=== PATIENT | female | born 1970 | race Two or more races ===

== ENCOUNTER 2019-05-13 23:52 | Emergency (ER) | payer OTHER ==
[~2019-05-13] VITALS: Ht 170.2 cm; Wt 113.4 kg
[2019-05-14 00:22] LABS: BASOPHILS ABSOLUTE AUTO 0.04 K/mm3 (0.00-0.23); BASOPHILS PERCENT AUTO 0 % (0-2); EOSINOPHILS ABSOLUTE AUTO 0.21 K/mm3 (0.00-0.68); EOSINOPHILS PERCENT AUTO 2 % (0-6); Hematocrit 38.2 % (33.0-51.0); Hemoglobin 12.7 g/dL (11.5-16.0); IMMATURE GRAN ABSOLUTE AUTO 0.08 K/mm3 (0.00-0.10); IMMATURE GRAN PERCENT AUTO 1 % (0-1); LYMPHOCYTES ABSOLUTE AUTO 2.74 K/mm3 (0.84-5.20); LYMPHOCYTES PERCENT AUTO 21 % (21-46); MONOCYTES PERCENT AUTO 6 % (4-13); Mean Corpuscular HGB 31.1 pg (26.0-34.0); Mean Corpuscular HGB Conc 33.2 g/dL (31.5-36.5); Mean Corpuscular Volume 94 fL (80-100); Mean Platelet Volume 10.2 fL (9.1-12.4); NEUTROPHILS ABSOLUTE AUTO 9.37 K/mm3 (1.96-9.15); NEUTROPHILS PERCENT AUTO 71 % (41-73); Platelet Count 270 K/mm3 (150-400); RDW Coefficient Variation 11.7 % (11.7-14.2); RDW Standard Deviation 40.1 fL (35.1-46.3); Red Blood Cell Count 4.08 M/mm3 (3.80-5.20); White Blood Cell Count 13.24 K/mm3 (4.00-11.30)
[2019-05-14 00:37] LABS: International Normalized Ratio 0.92; Prothrombin Time Results 9.8 Sec (9.7-11.5)
[2019-05-14 00:44] LABS: Alanine Aminotransfer (ALT/SGP 21 U/L (12-78); Albumin, Blood 3.9 g/dL (3.4-5.0); Albumin/Globulin Ratio 1.2 (0.8-1.8); Alk Phos 73 U/L (50-136); Anion Gap 6 mmol/L (6-16); Aspartate Aminotrans (AST/SGOT 12 U/L (12-37); Bilirubin, Total 0.2 mg/dL (0.1-1.0); Blood Urea Nitrogen 16 mg/dL (8-24); Bun/Creatinine Ratio 21.4 (12.0-20.0); CO2, Blood 28 mmol/L (21-32); Calcium, Blood 8.7 mg/dL (8.5-10.1); Chloride, Blood 105 mmol/L (98-108); Creatinine, Blood 0.75 mg/dL (0.40-1.00); Globulin, Blood 3.3 g/dL (2.2-4.0); Glomerular Filtration Rate >60 (60-); Glucose, Blood 76 mg/dL (70-99); Potassium, Blood 3.6 mmol/L (3.5-5.5); Sodium, Blood 139 mmol/L (136-145); Total Protein, Blood 7.2 g/dL (6.4-8.2); Troponin I <0.015 ng/mL (0.000-0.040)
== END 2019-05-14 02:12 | disposition home or self-care (01) ==
LOC: ER 23:52
PROVIDERS: Emergency Medicine
DX: R07.89 Other chest pain (principal); Z86.718 Personal history of other venous thrombosis and embolism; Z86.2 Personal history of diseases of the blood and blood-forming organs and certain disorders involving the immune mechanism; Z88.5 Allergy status to narcotic agent
CPT/HCPCS: 36415; 71260; 80053; 84484; 85025; 85610; 85730; 93005; 93010; 96374; 96375; 99284; J1885; J3010; Q9967

== ENCOUNTER 2019-09-22 14:00 | Day surgery (SDC) | payer OTHER ==
[~2019-09-22] VITALS: Ht 170.2 cm; Wt 117.0 kg
[~2019-09-22 14:00] MED LIST: Diethylpropion25 MG PO; ESCI20 PO; LEVSOD75 PO; OMEP20ER
== END 2019-09-22 15:25 | disposition home or self-care (01) ==
LOC: ORSCSDS 14:00
PROVIDERS: Student in an Organized Health Care Education/Training Program
PROC: 0DB58ZX Excision of Esophagus, Via Natural or Artificial Opening Endoscopic, Diagnostic (ICD-10-PCS; principal; 2019-09-22 15:15)
PROC: 0DB98ZX Excision of Duodenum, Via Natural or Artificial Opening Endoscopic, Diagnostic (ICD-10-PCS; principal; 2019-09-22 15:15)
PROC: 0DB68ZX Excision of Stomach, Via Natural or Artificial Opening Endoscopic, Diagnostic (ICD-10-PCS; principal; 2019-09-22 15:15)
DX: K21.9 Gastro-esophageal reflux disease without esophagitis (principal); E03.9 Hypothyroidism, unspecified; E66.01 Morbid (severe) obesity due to excess calories; Z68.41 Body mass index [BMI] 40.0-44.9, adult; Z79.899 Other long term (current) drug therapy
CPT/HCPCS: 88305; 88342; J2001; J2250; J2704; J7120

== ENCOUNTER 2022-09-17 06:11 | Emergency (ER) | payer OTHER ==
[~2022-09-17] VITALS: Ht 167.6 cm; Wt 81.7 kg
[2022-09-17 06:59] LABS: BASOPHILS ABSOLUTE AUTO 0.03 K/mm3 (0.00-0.23); BASOPHILS PERCENT AUTO 1 % (0-2); EOSINOPHILS ABSOLUTE AUTO 0.28 K/mm3 (0.00-0.68); EOSINOPHILS PERCENT AUTO 4 % (0-6); Hematocrit 27.8 % (33.0-51.0); Hemoglobin 9.1 g/dL (11.5-16.0); IMMATURE GRAN ABSOLUTE AUTO 0.05 K/mm3 (0.00-0.10); IMMATURE GRAN PERCENT AUTO 1 % (0-1); LYMPHOCYTES ABSOLUTE AUTO 1.44 K/mm3 (0.84-5.20); LYMPHOCYTES PERCENT AUTO 22 % (21-46); MONOCYTES ABSOLUTE AUTO 0.53 K/mm3 (0.16-1.47); MONOCYTES PERCENT AUTO 8 % (4-13); Mean Corpuscular HGB 32.9 pg (26.0-34.0); Mean Corpuscular HGB Conc 32.7 g/dL (31.5-36.5); Mean Corpuscular Volume 100 fL (80-100); NEUTROPHILS ABSOLUTE AUTO 4.22 K/mm3 (1.96-9.15); NEUTROPHILS PERCENT AUTO 64 % (41-73); Platelet Count 279 K/mm3 (150-400); RDW Standard Deviation 48.6 fL (35.1-46.3); Red Blood Cell Count 2.77 M/mm3 (3.80-5.20); White Blood Cell Count 6.55 K/mm3 (4.00-11.30)
[2022-09-17 07:24] LABS: Albumin, Blood 2.8 g/dL (3.4-5.0); Albumin/Globulin Ratio 0.9 (0.8-1.8); Bilirubin, Total 0.3 mg/dL (0.1-1.0); Bun/Creatinine Ratio 33.2 (12.0-20.0); Calcium, Blood 8.4 mg/dL (8.5-10.1); Creatinine, Blood 0.57 mg/dL (0.40-1.00); Globulin, Blood 3.2 g/dL (2.2-4.0)
[2022-09-17] MEDS ORDERED: Lasix20 MG PO (08:48)
== END 2022-09-17 09:19 | disposition home or self-care (01) ==
LOC: ER 06:11
PROVIDERS: Emergency Medicine
DX: R07.89 Other chest pain (principal); Z88.5 Allergy status to narcotic agent; Z88.8 Allergy status to other drugs, medicaments and biological substances; Z79.899 Other long term (current) drug therapy
CPT/HCPCS: 36415; 71260; 80053; 83880; 84484; 85025; 93005; 93010; 99284-25; Q9967

== ENCOUNTER 2022-10-02 00:26 | Day surgery (SDC) | payer OTHER ==
[~2022-10-02 00:26] MED LIST changes: +Lasix20 MG PO
== END 2022-10-02 22:44 | disposition home or self-care (01) ==
LOC: WOUND 00:26
DX: T81.32XA Disruption of internal operation (surgical) wound, not elsewhere classified, initial encounter (principal); Z88.5 Allergy status to narcotic agent; Z88.8 Allergy status to other drugs, medicaments and biological substances
CPT/HCPCS: A9270; G0463

== ENCOUNTER 2022-10-09 00:29 | Day surgery (SDC) | payer OTHER | END 2022-10-09 23:16 | disposition home or self-care (01) | LOC: WOUND 00:29 | DX: T81.32XA Disruption of internal operation (surgical) wound, not elsewhere classified, initial encounter (principal) | CPT/HCPCS: A9270; G0463 ==

== ENCOUNTER 2022-10-16 00:17 | Day surgery (SDC) | payer OTHER | END 2022-10-16 22:42 | disposition home or self-care (01) | LOC: WOUND 00:17 | DX: T81.30XA Disruption of wound, unspecified, initial encounter (principal) ==

== ENCOUNTER 2022-11-02 00:56 | Day surgery (SDC) | payer OTHER | END 2022-11-02 22:40 | disposition home or self-care (01) | LOC: WOUND 00:56 | DX: T81.30XD Disruption of wound, unspecified, subsequent encounter (principal); S31.809D Unspecified open wound of unspecified buttock, subsequent encounter; S41.102D Unspecified open wound of left upper arm, subsequent encounter; S71.101D Unspecified open wound, right thigh, subsequent encounter | CPT/HCPCS: G0463 ==

== ENCOUNTER 2022-11-10 00:28 | Day surgery (SDC) | payer OTHER | END 2022-11-10 23:01 | disposition home or self-care (01) | LOC: WOUND 00:28 | DX: T81.31XD Disruption of external operation (surgical) wound, not elsewhere classified, subsequent encounter (principal); S31.809D Unspecified open wound of unspecified buttock, subsequent encounter; S41.102D Unspecified open wound of left upper arm, subsequent encounter; S71.101D Unspecified open wound, right thigh, subsequent encounter; S71.102D Unspecified open wound, left thigh, subsequent encounter; X58.XXXD Exposure to other specified factors, subsequent encounter | CPT/HCPCS: A9270; G0463 ==

== ENCOUNTER 2022-11-20 08:00 | Day surgery (SDC) | payer OTHER | END 2022-11-20 23:59 | disposition home or self-care (01) | LOC: WOUND 08:00 | DX: T81.30XD Disruption of wound, unspecified, subsequent encounter (principal); Y83.8 Other surgical procedures as the cause of abnormal reaction of the patient, or of later complication, without mention of misadventure at the time of the procedure; S31.809D Unspecified open wound of unspecified buttock, subsequent encounter; S41.102D Unspecified open wound of left upper arm, subsequent encounter; S71.101D Unspecified open wound, right thigh, subsequent encounter; S71.102D Unspecified open wound, left thigh, subsequent encounter; X58.XXXD Exposure to other specified factors, subsequent encounter | CPT/HCPCS: A9270; G0463 ==

== ENCOUNTER → 2023-05-05 | Outpatient (CLI) | payer OTHER ==
[2023-05-05 14:47] LABS: SARS-Cov-2 (COVID-19) PCR, MMC NEGATIVE (NEGATIVE)
== END | disposition home or self-care (01) ==
LOC: LAB SHORT 12:54 → LAB 12:54
PROVIDERS: Family Medicine
DX: Z01.812 Encounter for preprocedural laboratory examination (principal)
CPT/HCPCS: U0002

== ENCOUNTER 2024-09-11 19:30 | Observation (INO) | payer OTHER ==
[~2024-09-11] VITALS: Ht 165.1 cm; Wt 74.8 kg
[2024-09-11 20:30] LABS: BASOPHILS ABSOLUTE AUTO 0.01 K/mm3 (0.00-0.23); BASOPHILS PERCENT AUTO 0 % (0-2); EOSINOPHILS ABSOLUTE AUTO 0.12 K/mm3 (0.00-0.68); EOSINOPHILS PERCENT AUTO 3 % (0-6); Hematocrit 32.3 % (33.0-51.0); Hemoglobin 11.4 g/dL (11.5-16.0); IMMATURE GRAN ABSOLUTE AUTO 0.01 K/mm3 (0.00-0.10); IMMATURE GRAN PERCENT AUTO 0 % (0-1); LYMPHOCYTES ABSOLUTE AUTO 1.48 K/mm3 (0.84-5.20); LYMPHOCYTES PERCENT AUTO 31 % (21-46); MONOCYTES ABSOLUTE AUTO 0.26 K/mm3 (0.16-1.47); MONOCYTES PERCENT AUTO 6 % (4-13); Mean Corpuscular HGB 32.6 pg (26.0-34.0); Mean Corpuscular HGB Conc 35.3 g/dL (31.5-36.5); Mean Corpuscular Volume 92 fL (80-100); Mean Platelet Volume 9.6 fL (9.1-12.4); NEUTROPHILS ABSOLUTE AUTO 2.83 K/mm3 (1.96-9.15); NEUTROPHILS PERCENT AUTO 60 % (41-73); Platelet Count 209 K/mm3 (150-400); RDW Coefficient Variation 11.4 % (11.7-14.2); RDW Standard Deviation 38.6 fL (35.1-46.3); White Blood Cell Count 4.71 K/mm3 (4.00-11.30)
[2024-09-11 20:53] LABS: Albumin, Blood 3.5 g/dL (3.4-5.0); Albumin/Globulin Ratio 1.1 (0.8-1.8); Bilirubin, Total 0.2 mg/dL (0.1-1.0); Bun/Creatinine Ratio 17.9 (12.0-20.0); Calcium, Blood 9.4 mg/dL (8.5-10.1); Creatinine, Blood 0.78 mg/dL (0.40-1.00); Globulin, Blood 3.1 g/dL (2.2-4.0); Potassium, Blood 3.8 mmol/L (3.5-5.5); Total Protein, Blood 6.6 g/dL (6.4-8.2)
[2024-09-11] MEDS ORDERED: FentaNYL Citrate 50 MCG/ML 2 ML Injection IV ONE (23:55)
[2024-09-11] MEDS ORDERED: Piperacillin/Tazobactam Sod 4.5 GM in NS 100 ML IV ONE (23:55)
[2024-09-12] VITALS (30 sets, daily range): BP systolic 90–168; BP diastolic 54–91
[2024-09-12] MEDS ORDERED: Ondansetron HCl 2 MG / ML 2ML Vial IV PRN (02:10)
[2024-09-12] MEDS ORDERED: FentaNYL Citrate 50 MCG/ML 2 ML Injection IV PRN ×3 (02:10→23:00)
[2024-09-12] MEDS ORDERED: NS 1,000 ML IV SCH (02:10)
[2024-09-12] MEDS ORDERED: FLU VACC TS2024-25(6MOS UP)/PF 45 MCG/0.5 ML SYRINGE IM ONE (02:15)
--- NOTE | 2024-09-12 02:15 | NUR ---
ARRIVAL NOTE PT ARRIVED FROM ED TO SURGICAL UNIT R/T CHOLECYSTITIS. PT A/OX4 WITH VSS AND IND IN ROOM. PT REPORTS RUQ PAIN AT TOLERABLE LEVEL. DENIES SOB, CHEST PAIN OR N/T. SPO2 ABOVE 95% ON RA. IS NPO. IV TO LEFT A/C SL. REFUSES SCDS, RISK VS BENIFIT EDUCATION PROVIDED, PT VERBALIZED UNDERSTANDING. STATES, "I CANT SLEEP WITH THEM. I WILL WEAR THEM AFTER SURGERY." CHARGE NOTIFIED. SPOUSE ATTENTIVE AT BEDSIDE. ORIENTATION TO ROOM PROVIDED, SPOUSE AND PT VERBALIZED UNDERSTANDING. DENIES CONCERNS. PLAN TO MEDICATE PER ORDERS AND FOR SURGICAL CONSULT THIS MORNING.
[2024-09-12] MEDS ORDERED: TraZODone HCl 100 MG Tab PO SCH (02:55)
[2024-09-12] MEDS ORDERED: ZINC15 PO (03:12)
[2024-09-12] MEDS ORDERED: [UNRECOGNIZED DRUG - CODE] PO (03:12)
[2024-09-12] MEDS ORDERED: FISH OIL 1,0001 EA10 PO (03:12)
[2024-09-12] MEDS ORDERED: DHEA PO (03:13)
[2024-09-12] MEDS ORDERED: MULVITA PO (03:13)
[2024-09-12] MEDS ORDERED: C COMPLEX1000 M1 PO (03:13)
[2024-09-12] MEDS ORDERED: MINO2.5 PO (03:14)
[2024-09-12] MEDS ORDERED: MERIBIN5 MG PO (03:14)
[2024-09-12] MEDS ORDERED: PYRI100 PO (03:15)
[2024-09-12] MEDS ORDERED: MYRBETRIQ25 MG PO (03:15)
[2024-09-12] MEDS ORDERED: OMEP20ER PO (03:16)
[2024-09-12] MEDS ORDERED: ESCI20 PO (03:16)
[2024-09-12] MEDS ORDERED: PROG100 PO (03:17)
[2024-09-12] MEDS ORDERED: TRAZ100 PO (03:17)
[2024-09-12] MEDS ORDERED: LEVSOD75 PO (03:17)
[2024-09-12] MEDS ORDERED: diphenhydrAMINE HCl 12.5 MG/5 ML 5MLUDC (Alcohol/Dye Free) PO PRN (03:45)
[2024-09-12] MEDS ORDERED: Progesterone, Micronized 100 MG Cap PO SCH (03:45)
[2024-09-12] MEDS ORDERED: DiphenhydrAMINE HCL 25 MG Cap PO PRN (04:00)
[2024-09-12 05:24] LABS: BASOPHILS ABSOLUTE AUTO 0.02 K/mm3 (0.00-0.23); BASOPHILS PERCENT AUTO 0 % (0-2); EOSINOPHILS ABSOLUTE AUTO 0.21 K/mm3 (0.00-0.68); EOSINOPHILS PERCENT AUTO 5 % (0-6); Hematocrit 35.8 % (33.0-51.0); Hemoglobin 12.4 g/dL (11.5-16.0); IMMATURE GRAN ABSOLUTE AUTO 0.01 K/mm3 (0.00-0.10); IMMATURE GRAN PERCENT AUTO 0 % (0-1); LYMPHOCYTES ABSOLUTE AUTO 1.62 K/mm3 (0.84-5.20); LYMPHOCYTES PERCENT AUTO 36 % (21-46); MONOCYTES ABSOLUTE AUTO 0.36 K/mm3 (0.16-1.47); MONOCYTES PERCENT AUTO 8 % (4-13); Mean Corpuscular HGB 32.5 pg (26.0-34.0); Mean Corpuscular HGB Conc 34.6 g/dL (31.5-36.5); Mean Corpuscular Volume 94 fL (80-100); Mean Platelet Volume 9.6 fL (9.1-12.4); NEUTROPHILS ABSOLUTE AUTO 2.34 K/mm3 (1.96-9.15); NEUTROPHILS PERCENT AUTO 51 % (41-73); Platelet Count 188 K/mm3 (150-400); RDW Coefficient Variation 11.4 % (11.7-14.2); RDW Standard Deviation 38.8 fL (35.1-46.3); Red Blood Cell Count 3.82 M/mm3 (3.80-5.20); White Blood Cell Count 4.56 K/mm3 (4.00-11.30)
[2024-09-12] MEDS ORDERED: Ampicillin Sod/Sulbactam Sod 3 GM in NS 100 ML IV SCH (06:00)
[2024-09-12 06:05] LABS: Albumin, Blood 3.5 g/dL (3.4-5.0); Albumin/Globulin Ratio 1.2 (0.8-1.8); Bilirubin, Total 0.2 mg/dL (0.1-1.0); Bun/Creatinine Ratio 18.4 (12.0-20.0); Calcium, Blood 8.7 mg/dL (8.5-10.1); Creatinine, Blood 0.76 mg/dL (0.40-1.00); Potassium, Blood 3.4 mmol/L (3.5-5.5); Total Protein, Blood 6.5 g/dL (6.4-8.2)
[2024-09-12] MEDS ORDERED: Potassium Chloride 40 MEQ in NS 250 ML IV ONE (07:05)
[2024-09-12] MEDS ORDERED: Bupivacaine 0.5% HCl 5 MG/ML 30MLVIAL INJ ONE ×2 (09:00→10:03)
[2024-09-12] MEDS ORDERED: Omeprazole 20 MG CapCR PO SCH (09:00)
[2024-09-12] MEDS ORDERED: Citalopram Hydrobromide 20 MG Tab PO SCH (09:00)
[2024-09-12] MEDS ORDERED: Lactated Ringer's 1,000 ML IV SCH (09:05)
--- NOTE | 2024-09-12 09:11 | NUR ---
PT TO OR AT THIS TIME
[2024-09-12] MEDS ORDERED: propofoL 20 ML IV ONE (09:23)
[2024-09-12] MEDS ORDERED: FentaNYL Citrate 50 MCG/ML 2 ML Injection IV ONE ×2 (09:23→22:55)
[2024-09-12] MEDS ORDERED: Midazolam HCl 1MG / ML 2ML Vial IV ONE (09:24)
[2024-09-12] MEDS ORDERED: Ondansetron HCl 2 MG / ML 2ML Vial IV ONE (09:46)
[2024-09-12] MEDS ORDERED: Dexamethasone Sod Phos 10 MG/ML 1ML VIAL IV ONE (09:46)
[2024-09-12] MEDS ORDERED: Phenylephrine HCl 100 MCG/ML-NS 10MLSYR (1MG/10ML) IV ONE (09:55)
[2024-09-12] MEDS ORDERED: Ketorolac Tromethamine 30mg Vial IV ONE (10:21)
[2024-09-12] MEDS ORDERED: Sugammadex Sodium 200 MG/2ML SDV (100 MG/ML) IV ONE (10:21)
[2024-09-12] MEDS ORDERED: HYDROmorphone HCl/Pf 1MG SYR ONE ×4 (11:07→12:03)
[2024-09-12] MEDS ORDERED: Lactated Ringer's 1,000 ML IV ONE (11:26)
[2024-09-12] MEDS ORDERED: FentaNYL Citrate 50 MCG/ML 2 ML Injection ONE (11:33)
[2024-09-12] MEDS ORDERED: HYDROmorphone HCl/Pf 1MG SYR IV PRN (12:10)
[2024-09-12] MEDS ORDERED: HYDROcodone 5-APAP 325 TAB PO PRN (12:45)
[2024-09-12] MEDS ORDERED: Simethicone 80 MG Chew PO ONE (16:50)
--- NOTE | 2024-09-12 18:44 | NUR ---
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 PT TO UNIT AT ABOUT 1230. PT IS A/O, VSS. SURGICAL SITES WNL. PT REPORTS PAIN 7/10, MEDICATED PER EMAR AND HEATING PAD APPLIED PER PT REQUEST. PT INSTRUCTED TO USE CALL LIGHT IF NEEDS OOB, AND STAFF TO HELP THE 1ST TIME. CALL LIGHT IN REACH. PT AT BEDSIDE.
--- NOTE | 2024-09-12 18:52 | NUR ---
SUMMARY: NO ACUTE CHANGE SINCE POST OP. VSS, A/O. PT IS VOIDING AND AMBULATING. PT REPORTS SOME DIZZINESS WHEN UP, BUT NONE WHILE SITTING AND REPORTS HAVING LESS TONIGHT. PAIN IS BEING WELL MANAGED WITH 2 NARCO. NO ACUTE CONCERNS, REPORT PASSED TO ANNI RN ELIZA
--- NOTE | 2024-09-12 22:56 | NUR ---
PATIENT COMMUNICATION THIS RN ROUNDED ON THE PATIENT TO GIVE MEDICATION, THE PRIMARY NURSE WAS BUSY. PT DESCRIBING 8-10/10 PAIN ON R ABD AND ACROSS HER LOWER ABD. PT ENDORSES THAT THE PAIN IS GROWING AND GOING TO BOTH OF HER SHOULDERS AND HER NECK. THIS RN RECCOMENDED THAT THE PATIENT COULD AMBULATE WHEN PAIN WAS IMPROVED, TO HELP PASS FLATTUS AND DECREASE ABD PAIN. PT REPORT SHE "DOES NOT FART", AND REPEATED THIS MULTIPLE TIMES. THE PATIENT THEN ASKED THIS RN IF I THOUGHT SHE WAS "LYING ABOUT NOT BEING ABLE TO PASS FLATTUS". THIS RN EDUCATED THE PATIENT AND THAT I WAS ASSESSING FOR ANY ANATOMICAL DIFFERENCES THAT WOULD PREVENT THE PATIENT FROM PASSING AIR THROUGH HER ANUS. THE PT THEN MENTIONED THAT HER PAIN WAS OUT OF CONTROL AT 2100, AND THAT SHE WAS NOT GIVEN PAIN MEDICATION. THIS RN WAS THE NURSE THAT ROUNDED ON THIS PT AT 2100 AND OFFERED HER NIGHTLY MEDICATIONS AND ASKED IF SHE NEEDED ANYTHING ELSE AT THAT TIME. THE PATIENT STATED SHE WAS "TOLD BY SOMEONE" THAT SHE COULD NOT HAVE PAIN MEDICATION UNTIL 2200. THIS RN INFORMED THE PATIENT TO CALL FOR PAIN MEDICATION REGAURDLESS OF WHEN IT MAY BE DUE, BECAUSE THERE ARE INTERVENTIONS THAT CAN BE DONE IN THE MEANTIME. PT WAS UNRECEPTING TO COUNSELING, SHE STATED SHE WAS NOT ABLE TO AMBULATE AT THIS TIME DUE TO PAIN, AND THAT SHE DID NOT WANT HEAT OR ICE. THE PATIENT IS REFUSING ALL NONPHARM METHODS AT THIS TIME, RESONABLY SO, SHE IS IN SIGNIFIGANT PAIN. CALL PLACED TO HOSPITALIST AND THE SITUATION WAS EXPLAINED, RECIEVED ORDER FOR ONE TIME DOSE OF 50 MIKES OF FENT, AND Q2 FENT TO GO WITH HER Q4 NORCO.
[2024-09-12] MEDS ORDERED: Ampicillin Sod/Sulbactam Sod 3 GM ONE (23:09)
[2024-09-13] MEDS ORDERED: Trospium Chloride 20 MG Tab PO SCH (06:00)
[2024-09-13] MEDS ORDERED: Levothyroxine Sodium 0.075 MG Tab PO SCH (06:00)
[2024-09-13] MEDS ORDERED: Omeprazole 20 MG CapCR PO SCH (06:00)
[2024-09-13 06:07] LABS: Hematocrit 38.1 % (33.0-51.0); Hemoglobin 13.1 g/dL (11.5-16.0); Mean Corpuscular HGB 32.4 pg (26.0-34.0); Mean Corpuscular HGB Conc 34.4 g/dL (31.5-36.5); Mean Corpuscular Volume 94 fL (80-100); Platelet Count 206 K/mm3 (150-400); RDW Coefficient Variation 11.3 % (11.7-14.2); RDW Standard Deviation 38.8 fL (35.1-46.3); Red Blood Cell Count 4.04 M/mm3 (3.80-5.20); White Blood Cell Count 10.33 K/mm3 (4.00-11.30)
[2024-09-13 06:10] VITALS: BP 154/75
[2024-09-13 06:34] LABS: Bun/Creatinine Ratio 14.9 (12.0-20.0); Calcium, Blood 8.9 mg/dL (8.5-10.1); Creatinine, Blood 0.67 mg/dL (0.40-1.00)
[2024-09-13] MEDS ORDERED: HYDROmorphone HCl 2 MG Tab PO PRN (07:00)
[2024-09-13] MEDS ORDERED: Simethicone 80 MG Chew PO PRN (07:00)
[2024-09-13 07:30] VITALS: BP 134/68
--- NOTE | 2024-09-13 07:30 | NUR ---
SHIFT SUMMARY POD 1 S/P LAP FITZ. ABD LAP SITES X 4; NO DRAINAGE NOTED. PT REQUIRED IV BREAK THRU MEDICATION 3X COUPLED WITH Q 4 PO PAIN MEDS PER EMAR. PAIN MANAGEMENT EDUCATION PROVIDED TO PT AND SPOUSE FREQUENTLY T/O SHIFT BY RN AND GM VIDEO. PT STRONGLY ENCOURAGED TO AMBULATE IN HALLWAY OR ROOM TO ASSIST WITH GAS PAIN RELIEF. PT VERBALIZED UNDERSTANDING. AMBULATED X 1 IN HALLWAY AT START OF SHIFT, THEN REFUSED T/O REST OF SHIFT. PT AND SPOUSE VERBALIZED UNDERSTANDING OF EDUCATION. DANIELLA PO INTAKE, REPORTS NAUSEA THIS MORNING, DECLINES ZOFRAN. IV INFILTRATED WITH 0600 ABX INFUSION. PT REFUSED NEW IV INSERTION DUE TO "BEING A DIFFICULT STICK" AND PLANS TO DISCUSS ABX OPTIONS WITH PROVIDER THIS MORNING. IS VOIDING. REPORTS PASSING FLATUS AND BELCHING. CURRENTLY RESTING IN BED, SNORING WITH RESP EVEN AND UNLABORED. HAS CALL LIGHT IN REACH AND ABLE TO MAKE NEEDS KNOWN. SPOUSE AT BEDSIDE. PLAN FOR POSSIBLE DISCHARGE HOME TODAY. REPORT GIVEN TO DAY RN.
[2024-09-13] MEDS ORDERED: MINOXIDIL PO SCH (09:00)
[2024-09-13] MEDS ORDERED: Mag Hydrox/AL Hydrox/Simeth 30 ML UDC PO PRN (09:35)
[2024-09-13] MEDS ORDERED: OxyCODONE 10/Acetamin 325 TABLET PO PRN (09:40)
--- NOTE | 2024-09-13 10:12 | NUR ---
MORNING NOTE THIS RN ASSUMED CARE AT APPROX 0715. PATIENT SLEEPING THROUGHOUT VALET RUNNER - EASILY AROUSABLE WITH VERBAL STIMULI. VSS. SBP 130s. MAP >65. DENIES CHEST PAIN, PRESSURE. ON ROOM AIR, SATs >90%. RR EVEN, UNLABORED. POD 1 LAP FITZ. X3 INCISION SITE WITH WOUND GLUE C/D/I. X1 UMBILICUS INCISION SITE WITH BANDAID C/D/I. REPORTS OCCASIONAL FLATULENCE AND BURPING. DENIES N/V. REPORTING 710 SHARP "GAS LIKE" PAIN - PO GAS X ADMINISTERED PER EMAR. MD TABARES AT BEDSIDE - PO PERCOCET ORDERED. ENCOURAGING MOBILITY TOLERATED. INDEPENDENT IN ROOM. NO IV ACCESS ORDERED PER MD - IV ABX DCd. VOIDING. AT BEDSIDE. CALL LIGHT IN REACH.
[2024-09-13] MEDS ORDERED: Polyethylene Glycol 3350 17 gm PO PRN (10:25)
[2024-09-13 14:44] VITALS: BP 142/79
[2024-09-13] MEDS ORDERED: Percocet 10-321 EACH PO (16:51)
[2024-09-13] MEDS ORDERED: SIME80CH PO (16:52)
--- NOTE | 2024-09-13 17:11 | NUR ---
SHIFT SUMMARY NO ACUTE CHANGES SINCE MORNING NOTE. PATIENT SLEPT THROUGHOUT DAY - EASILY AROUSABLE WITH VERBAL STIMULI. ENCOURAGING MOBILITY TOLERATED - ABLE TO AMBULATE IN ROOM WITHOUT INCREASED PAIN. VSS. SBP 130s-140s. MAP >65. DENIES CHEST PAIN, PRESSURE. ON ROOM AIR, SATs >90%. RR EVEN, UNLABORED. POD 1 LAP FITZ - INCISION SITES C/D/I. PAIN MANAGED WITH PO PERCOCET AND GASX. TOLERATING PO INTAKE. VOIDING. REPORTING EPISODES OF FLATULENCE. NO BM. CLEARED FOR DC HOME BY MD JIN AND HOSPITALIST. PATIENT PLANNING ON DC THIS EVENING. HARD SCRIPT GIVEN TO TO FILL MEDICATION PRIOR TO DC. CALL LIGHT IN REACH.
[2024-09-13 19:14] VITALS: BP 140/75
[2024-09-13] MEDS ORDERED: ALPRAZolam 0.5 MG Tab PO PRN (19:40)
[2024-09-13] MEDS ORDERED: Docusate Sodium 100 MG Cap PO SCH (21:00)
[2024-09-13] MEDS ORDERED: Sennosides 8.6 MG Tab PO SCH (21:00)
[2024-09-14 00:28] VITALS: BP 138/76
--- NOTE | 2024-09-14 05:34 | NUR ---
NOC SHIFT SUMMARY- PT CONTINUES TO REPORT PAIN. PT TX PER EMAR WITH SOME RELIEF. DR BLANCHARD CALLED AND ORDERED HOME DOSE OF XANAX. PT REPORTS FEELING BETTER. PT ATTEMPTED TO WALK SOME. PT REPORTED FEELING DIZZY AND PAINFUL. PT HAS BEEN ABLE TO SLEEP. PT IS VOIDING. PT DENIES PASSING GAS. PT REPORTS SIGNIFICANT HISTORY OF CONSTIPATION. DR BLANCHARD ORDERED BOWEL CARE. PT ENCOURAGED TO DRINK WATER. PT CURRENTLY RESTING QUIETLY. PT STAYED THE NIGHT. CALL LIGHT IN REACH.
[2024-09-14 05:57] VITALS: BP 140/76
[2024-09-14 07:30] VITALS: BP 123/81
--- NOTE | 2024-09-14 11:33 | NUR ---
ABDOMINAL BINDER PLACED FOR PATIENT COMFORT. PT DENIES FLATUS SINCE YESTERDAY MORNING. REPORTS PAIN 5-10.
--- NOTE | 2024-09-14 16:03 | NUR ---
DISCHARGE PT DISCHARGED HOME FROM UNIT AT APROX 1550. PT AND BOTH GIVEN WRITTEN AND VERBAL DISCHARGE INSTRUCTIONS AND VERBALIZED UNDERSTANDING OF THESE INSTRUCTIONS. FURTHER EDUCATION WAS GIVEN ON THE NEED TO MOBILIZE TO ENCOURAGE GASTRIC MOTILITY PT HAS NOT BEEN AMBULATING MUCH AND IS CONTINUING TO COMPLAIN OF ABD PAIN W/MEDICATION WITH PAIN MEDICATION IN R SIDE TRAVELING UP UNDER RIBS. ALSO ENCOURAGED TO ADVANCE DIET SLOWLY, CLEAR AND FULL LIQUIDS UNTIL PASSING GAS AND OR BM. PT VERBALIZED UNDERSTANDING. PT PREVIOUSLY FILLED NEW RX FOR PAIN MEDICATION. WHEELCHAIR TO PRIVATE VEHICLE.
== END 2024-09-14 16:11 | disposition home or self-care (01) ==
LOC: ER 19:30 → ERHOLD 19:31 → SURS 19:31
PROVIDERS: Registered Nurse; Student in an Organized Health Care Education/Training Program; Surgery; ADMIT Internal Medicine
PROC: 0FT44ZZ Resection of Gallbladder, Percutaneous Endoscopic Approach (ICD-10-PCS; principal; 2024-09-12 09:30)
DX: K80.12 Calculus of gallbladder with acute and chronic cholecystitis without obstruction (principal); E03.9 Hypothyroidism, unspecified; D68.51 Activated protein C resistance; K21.9 Gastro-esophageal reflux disease without esophagitis; Z79.899 Other long term (current) drug therapy; Z88.5 Allergy status to narcotic agent; Z88.8 Allergy status to other drugs, medicaments and biological substances
CPT/HCPCS: 36415; 76705; 80048; 80053; 83690; 83880; 85025; 85027; 88304; 96374; 96375; 96376; 99285-25; A9270; G0378; J0295; J1100; J1171; J1885; J2250; J2371; J2405; J2543; J2704; J3010; J3480; J7030; J7050; J7120